=== PATIENT | male | born 2005 | race Two or more races ===

== ENCOUNTER → 2025-02-14 | Outpatient (CLI) | payer MEDICAID, SELFPAY ==
--- NOTE | 2025-02-14 11:26 | XR_ITS ---
Examination: Hand, right 3 views Technique: Hand AP, oblique, lateral 3 views Date and time of exam: February 14, 2025, 1139 hours INDICATIONS: Hand fracture one month ago, fifth metacarpal FINDINGS: Significant healing fracture distal fifth metacarpal with mild dorsal angulation at the fracture site Carpal bones intact IMPRESSION: Significant healing fracture distal fifth metacarpal
--- NOTE | 2025-02-14 11:26 | XR_ITS ---
Examination: Wrist, right 3 views Technique: Wrist AP, oblique, lateral 3 views Date and time of exam: February 14, 2025, 11:39 AM INDICATIONS: History fracture fifth metacarpal one month ago. FINDINGS: Significant healing fracture distal fifth metacarpal Satisfactory alignment IMPRESSION: Significant healing fracture distal fifth metacarpal with satisfactory alignment
== END | disposition home or self-care (01) ==
LOC: CDIM 11:20
PROVIDERS: PCP Nurse Practitioner Family; Referring Provider Nurse Practitioner Gerontology; Visit Provider Nurse Practitioner Gerontology
DX: S62.396A Other fracture of fifth metacarpal bone, right hand, initial encounter for closed fracture (principal); X58.XXXA Exposure to other specified factors, initial encounter
CPT/HCPCS: 73110; 73130